=== PATIENT | male | born 1985 | race Caucasian/White ===

== ENCOUNTER 2016-11-12 17:38 | Emergency (ER) | payer OTHER ==
[~2016-11-12] VITALS: Ht 175.3 cm; Wt 81.0 kg
[~2016-11-12 17:38] MED LIST: FLUO-1 PO; HYDR-3133 PO; K-TA10TA5 PO
[2016-11-12 17:43] VITALS: BP 143/86; PULSE 124; RESP 20; TEMP 98; O2SAT 99
--- NOTE | 2016-11-12 18:21 | PD ---
Physical Exam Time Seen by Provider: 18:20 Narrative 31yo M sent by Dr. Sepulveda for tachycardia, EKG changes, and bilateral feet and hand swelling. +chest pain and SOB. Reports heart racing. Patient seen in triage. VS reviewed. Awaiting bed placement. Data Data Last Documented VS Vital Signs Date Time Temp Pulse Resp B/P Pulse Ox O2 Delivery O2 Flow Rate FiO2 11/12/16 17:43 98.0 124 20 143/86 99 Room Air MDM Supervised Visit with CELIO: Nela Bella Nov 12, 2016 18:21
[2016-11-12 19:57] VITALS: RESP 22; O2SAT 98
[2016-11-12] MEDS ORDERED: SODIUM CHLOR 0.9% 1000 ML INJ 1,000 ML IV ONE ×3 (20:00→21:30)
[2016-11-12] MEDS ORDERED: chlordiazePOXIDE 25 MG CAP PO ONE (20:00)
[2016-11-12] MEDS ORDERED: SODIUM CHLORIDE 0.9% FLUSH 10 ML FLUSH IVF PRN (20:00)
--- NOTE | 2016-11-12 20:00 | PD ---
HPI Chief Complaint: Cardiac Complaint Time Seen by Provider: 19:10 Travel History International Travel<30 days: No Contact w/Intl Traveler<30days: No Traveled to known affect area: No History of Present Illness HPI The patient is a 31-year-old male who presents to the emergency department from his primary physician's office for evaluation of tachycardia, bilateral lower extremity edema, and occasional tremors. The patient states he has a 4-5 month history of chronic diarrhea, goes to the bathroom approximate 4- 5 times daily, loose, watery, and has been evaluated by GI with previous workup. The patient states his workup was unremarkable. He also complains of occasional tremors of the upper extremities, intermittent lower extremity edema , difficulty sleeping. The patient does admit to drinking approximately 8-9 alcoholic drinks per day and drinking up to 2 L of Coke per day. The patient was seen by his primary physician earlier today was noted to have mild tachycardia and was referred to the emergency department for IV hydration. Patient does have a history of ADHD, but denies taking any current stimulants, [id number] decongestions, or illicit drugs. He does note a 10 pound weight loss over the last 2 weeks. He denies any known history of thyroid disorders. Symptoms are moderate, no known alleviating or exacerbating factors. [facility] Past Medical History ADD: Yes ADHD: Yes (WAS OFF MEDS 6 YRS PROIR MED WAS RIDALIN ) Anxiety: Yes Depression: Yes Diminished Hearing: No Psychiatric: Yes Immunizations Current: Yes Migraines: Yes ?: Not Past Surgical History Surgical History: No Previous Surgery Social History Alcohol Use: Yes (every other day) Tobacco Use: Yes (4 black and milds daily) Substance Use: No Allergies-Medications (Allergen,Severity, Reaction): Coded Allergies: Adderall (Verified Allergy, Mild, INCREASE RATE OF BP/HIGH BP, 11/12/16) Reported Meds & Prescriptions Reported Meds & Active Scripts Active No Active Prescriptions or Reported Medications Review of Systems Except as stated in HPI: all other systems reviewed are Neg General / Constitutional: No: Fever HENT: No: Headaches, Lightheadedness Cardiovascular: Positive: Palpitations, Tachycardia, No: Chest Pain or Discomfort Respiratory: No: Shortness of Breath Gastrointestinal: Positive: Nausea, Diarrhea, No: Vomiting, Abdominal Pain Genitourinary: No: Decreased Urinary Output Musculoskeletal: No: Weakness Neurologic: Positive: Tremor Psychiatric: Positive: Substance Abuse (drinks approximately 8-9 alcoholic drinks per day) Physical Exam Narrative GENERAL: Awake, alert, pleasant 31-year-old male who appears his stated age and is in no acute respiratory distress. SKIN: Focused skin assessment warm/dry. HEAD: Atraumatic. Normocephalic. EYES: Pupils equal and round. Pupils are 4 mm bilateral and reactive. ENT: No nasal bleeding or discharge. Slightly dry mucous membranes. NECK: Trachea midline. No JVD. CARDIOVASCULAR: Regular, tachycardic with a heart rate of 110. RESPIRATORY: No accessory muscle use. Clear to auscultation. Breath sounds equal bilaterally. GASTROINTESTINAL: Abdomen soft, non-tender, nondistended. No rebound tenderness. MUSCULOSKELETAL: No obvious deformities. No clubbing. No cyanosis. Trace edema to feet bilaterally. NEUROLOGICAL: Awake and alert. No obvious cranial nerve deficits. Motor grossly within normal limits. Normal speech. Nonfocal. Oriented 4. PSYCHIATRIC: Appropriate mood and affect; insight and judgment normal. Data Data Last Documented VS Vital Signs Date Time Temp Pulse Resp B/P Pulse Ox O2 Delivery O2 Flow Rate FiO2 11/12/16 19:57 22 98 Room Air 11/12/16 17:43 98.0 124 143/86 Orders Electrocardiogram (11/12/16 19:50) Ckmb (Isoenzyme) Profile (11/12/16 19:50) Complete Blood Count With Diff (11/12/16 19:50) Comprehensive Metabolic Panel (11/12/16 19:50) Magnesium (Mg) (11/12/16 19:50) Prothrombin Time / Inr (Pt) (11/12/16 19:50) Act Partial Throm Time (Ptt) (11/12/16 19:50) Troponin I (11/12/16 19:50) Lipase (11/12/16 19:50) Ecg Monitoring (11/12/16 19:50) Iv Access Insert/Monitor (11/12/16 19:50) Oximetry (11/12/16 19:50) Sodium Chloride 0.9% Flush (Ns Flush) (11/12/16 20:00) Alcohol (Ethanol) (11/12/16 19:50) Sodium Chlor 0.9% 1000 Ml Inj (Ns 1000 M (11/12/16 20:00) Sodium Chlor 0.9% 1000 Ml Inj (Ns 1000 M (11/12/16 20:00) Thyroid Stimulating Hormone (11/12/16 19:50) Chlordiazepoxide (Librium) (11/12/16 20:00) CKMB (11/12/16 20:11) CKMB% (11/12/16 20:11) Potassium Chloride Eff (K-Lyte Cl Eff) (11/12/16 21:30) Ns (Bolus) Inj (11/12/16 21:30) Lorazepam Inj (Ativan Inj) (11/12/16 21:30) Labs Laboratory Tests Test 11/12/16 20:11 White Blood Count 11.9 TH/MM3 Red Blood Count 4.11 MIL/MM3 Hemoglobin 14.8 GM/DL Hematocrit 42.1 % Mean Corpuscular Volume 102.3 FL Mean Corpuscular Hemoglobin 36.0 PG Mean Corpuscular Hemoglobin 35.2 % Concent Red Cell Distribution Width 14.5 % Platelet Count 249 TH/MM3 Mean Platelet Volume 8.6 FL Neutrophils (%) (Auto) 65.4 % Lymphocytes (%) (Auto) 23.9 % Monocytes (%) (Auto) 9.0 % Eosinophils (%) (Auto) 0.7 % Basophils (%) (Auto) 1.0 % Neutrophils # (Auto) 7.8 TH/MM3 Lymphocytes # (Auto) 2.8 TH/MM3 Monocytes # (Auto) 1.1 TH/MM3 Eosinophils # (Auto) 0.1 TH/MM3 Basophils # (Auto) 0.1 TH/MM3 CBC Comment DIFF FINAL Differential Comment Prothrombin Time 24.0 SEC Prothromb Time International 2.1 RATIO Ratio Activated Partial 38.1 SEC Thromboplast Time Sodium Level 131 MEQ/L Potassium Level 3.0 MEQ/L Chloride Level 92 MEQ/L Carbon Dioxide Level 28.2 MEQ/L Anion Gap 11 MEQ/L Blood Urea Nitrogen 4 MG/DL Creatinine 1.01 MG/DL Estimat Glomerular Filtration 87 ML/MIN Rate Random Glucose 101 MG/DL Calcium Level 9.3 MG/DL Magnesium Level 1.7 MG/DL Total Bilirubin 1.8 MG/DL Aspartate Amino Transf 131 U/L (AST/SGOT) Alanine Aminotransferase 50 U/L (ALT/SGPT) Alkaline Phosphatase 221 U/L Total Creatine Kinase 157 U/L Creatine Kinase MB 1.3 NG/ML Troponin I LESS THAN 0.02 NG/ML Total Protein 7.4 GM/DL Albumin 3.4 GM/DL Lipase 250 U/L Thyroid Stimulating Hormone 1.900 uIU/ML [facility] Medical Decision Making Medical Screen Exam Complete: Yes Emergency Medical Condition: Yes Medical Record Reviewed: Yes Interpretation(s) EKG reveals sinus tachycardia with a heart rate of 114. Nonspecific T-wave changes. Laboratory Tests Test 11/12/16 20:11 White Blood Count 11.9 TH/MM3 Red Blood Count 4.11 MIL/MM3 Hemoglobin 14.8 GM/DL Hematocrit 42.1 % Mean Corpuscular Volume 102.3 FL Mean Corpuscular Hemoglobin 36.0 PG Mean Corpuscular Hemoglobin 35.2 % Concent Red Cell Distribution Width 14.5 % Platelet Count 249 TH/MM3 Mean Platelet Volume 8.6 FL Neutrophils (%) (Auto) 65.4 % Lymphocytes (%) (Auto) 23.9 % Monocytes (%) (Auto) 9.0 % Eosinophils (%) (Auto) 0.7 % Basophils (%) (Auto) 1.0 % Neutrophils # (Auto) 7.8 TH/MM3 Lymphocytes # (Auto) 2.8 TH/MM3 Monocytes # (Auto) 1.1 TH/MM3 Eosinophils # (Auto) 0.1 TH/MM3 Basophils # (Auto) 0.1 TH/MM3 CBC Comment DIFF FINAL Differential Comment Prothrombin Time 24.0 SEC Prothromb Time International 2.1 RATIO Ratio Activated Partial 38.1 SEC Thromboplast Time Sodium Level 131 MEQ/L Potassium Level 3.0 MEQ/L Chloride Level 92 MEQ/L Carbon Dioxide Level 28.2 MEQ/L Anion Gap 11 MEQ/L Blood Urea Nitrogen 4 MG/DL Creatinine 1.01 MG/DL Estimat Glomerular Filtration 87 ML/MIN Rate Random Glucose 101 MG/DL Calcium Level 9.3 MG/DL Magnesium Level 1.7 MG/DL Total Bilirubin 1.8 MG/DL Aspartate Amino Transf 131 U/L (AST/SGOT) Alanine Aminotransferase 50 U/L (ALT/SGPT) Alkaline Phosphatase 221 U/L Total Creatine Kinase 157 U/L Creatine Kinase MB 1.3 NG/ML Troponin I LESS THAN 0.02 NG/ML Total Protein 7.4 GM/DL Albumin 3.4 GM/DL Lipase 250 U/L Thyroid Stimulating Hormone 1.900 uIU/ML 3rd Gen Differential Diagnosis Differential diagnosis includes hyperthyroidism, alcohol abuse, dehydration, acute renal failure, hypokalemia, hypocalcemia, hypoalbuminemia, ADHD, peggy. Narrative Course IV was established, labs are drawn and sent, and the patient was placed on cardiac telemetry monitoring and continuous pulse oximetry monitoring. EKG was ordered and interpreted. The patient was administered 2 L of IV fluids. TSH was sent to lab. I had a discussion with the patient regarding possible alcohol abuse with Betadine alcoholic drinks a day which could contribute to dehydration, insomnia, and mild withdrawal symptoms. The patient's MCV is grater than 102, INR is 2.1, AST is greater than ALT had a 3-1 ratio, most likely this is related to chronic alcohol abuse. The patient states he has been trying to wean himself off of alcohol and S1 is symptoms started. Therefore, the patient was administered a third liter of IV fluids and Ativan 1 mg intravenously, he will be discharged home on Librium tapering dose and is advised to follow-up with his primary physician and to avoid alcohol. He will be provided a copy of his labs at discharge. Return if symptoms worsen or progress. Diagnosis Primary Impression: Alcohol withdrawal Qualified Code: F10.230 - Alcohol withdrawal, uncomplicated Additional Impressions: Alcohol abuse Hypokalemia Patient Instructions: General Instructions Additional Instructions: Stop drinking alcohol. Librium as directed. Follow-up with her primary physician. Please provide the patient a copy of his lab results at discharge. Med/Other Pt SpecificInfo: Prescription(s) given Scripts Chlordiazepoxide HCl 25 Mg Capsule1 Tab PO DIRECTED #20 Prov:Davie Pat MD 11/12/16 Disposition: DISCHARGE HOME Condition: Stable Davie Pat MD Nov 12, 2016 20:00
[2016-11-12 20:29] LABS: AUTOMATED NEUTROPHIL # 7.8 TH/MM3 (1.8-7.7); BASOPHIL # 0.1 TH/MM3 (0-0.2); EOSINOPHIL # 0.1 TH/MM3 (0-0.4); EOSINOPHIL % 0.7 % (0.0-4.0); HEMATOCRIT 42.1 % (39.0-51.0); HEMO FLAGS DIFF FINAL; LYMPH % 23.9 % (9.0-44.0); LYMPHOCYTE # 2.8 TH/MM3 (1.0-4.8); MEAN CELL VOLUME 102.3 FL (80.0-100.0); MEAN CORPUSCULAR HGB CONC 35.2 % (32.0-36.0); NEUT % 65.4 % (16.0-70.0); PLATELET COUNT 249 TH/MM3 (150-450); RED BLOOD COUNT 4.11 MIL/MM3 (4.50-5.90); RED CELL DISTRIBUTION WIDTH 14.5 % (11.6-17.2); WHITE BLOOD COUNT 11.9 TH/MM3 (4.0-11.0)
[2016-11-12 20:52] LABS: APTT (PATIENT) 38.1 SEC (24.3-30.1); INTERNATIONAL NORMALIZED RATIO 2.1 RATIO
[2016-11-12 20:53] LABS: ALT (GPT) 50 U/L (12-78)
[2016-11-12 21:02] LABS: ALKALINE PHOSPHATASE 221 U/L (45-117); CREATINE KINASE 157 U/L (39-308); TOTAL BILIRUBIN ADULT 1.8 MG/DL (0.2-1.0)
[2016-11-12 21:04] LABS: ANION GAP 11 MEQ/L (5-15); AST (GOT) 131 U/L (15-37); BICARBONATE 28.2 MEQ/L (21.0-32.0); BLOOD UREA NITROGEN 4 MG/DL (7-18); CHLORIDE 92 MEQ/L (98-107); GLOMERULAR FILTRATION RATE 87 ML/MIN (>89); MAGNESIUM 1.7 MG/DL (1.5-2.5); SODIUM (NA) 131 MEQ/L (136-145)
[2016-11-12 21:15] LABS: CKMB 1.3 NG/ML (0.5-3.6)
[2016-11-12] MEDS ORDERED: CHLO25CA9 PO (21:28)
[2016-11-12] MEDS ORDERED: LORazepam 2 MG/ML VIAL IV PUSH ONE (21:30)
[2016-11-12] MEDS ORDERED: POTASSIUM CHLORIDE 25 MEQ EFFERVESCENT TAB PO ONE (21:30)
[2016-11-12 21:57] VITALS: BP 127/76; PULSE 99; RESP 20; O2SAT 100
== END 2016-11-12 22:20 | disposition home or self-care (01) ==
LOC: NEPC 17:38
DX: F10.239 Alcohol dependence with withdrawal, unspecified (principal); F10.10 Alcohol abuse, uncomplicated; R25.1 Tremor, unspecified; E87.6 Hypokalemia; R00.0 Tachycardia, unspecified; R00.2 Palpitations; F41.9 Anxiety disorder, unspecified; F32.9 Major depressive disorder, single episode, unspecified; F17.200 Nicotine dependence, unspecified, uncomplicated
CPT/HCPCS: 80053; 80307; 82550; 82552; 83690; 83735; 84443; 84484; 85025; 85610; 85730; 96361; 96374; 99284; J2060; J7030